=== PATIENT | male | born 1990 | race Caucasian/White ===

== ENCOUNTER 2017-07-17 18:52 | Emergency (ER) | payer BC, SELFPAY ==
[2017-07-17 19:58] VITALS: BP 191/112; PULSE 90; RESP 20; TEMP 36.8; O2SAT 100; BMI 45.4
--- NOTE | 2017-07-17 20:03 | HMH.EDUTC ---
[facility] [place] Disposition Clinical Impression: Muscle spasm Disposition: Home, Self-Care Condition on Discharge: Good Instructions: DI for Muscle Spasm, Back Pain (Alternative Therapy), DI for Thoracic Back Pain Additional Instructions: Follow up with family doctor If you do not have a family doctor I provided you with a list of doctor accepting patients Take medication as prescribed REturn if needed Prescriptions: Cyclobenzaprine HCl [Flexeril 10mg tablet] 10 mg PO TID PRN #20 tab PRN Reason: Muscle Spasm Etodolac [Etodolac 200mg Cap] 200 mg PO Q6H PRN #20 cap PRN Reason: Moderate Pain Forms: Work/School Release Time of Disposition: 20:42 Medical Decision Making - Medical Records Medical records reviewed: Yes: I reviewed the patient's medical records. Vital Signs: 07/17/17 19:58 07/17/17 20:32 Temperature 98.3 F Temperature Source Temporal Artery Scan Pulse Rate [Right] 90 Respiratory Rate 20 Blood Pressure 153/60 Blood Pressure [Right Arm] 191/112 Blood Pressure Mean [Right Arm] 138 Blood Pressure Source [Right Arm] Automatic Cuff Blood Pressure Position [Right Arm] Standing 02 Sat by Pulse Oximetry 100 Oxygen Delivery Method Room Air Orders (Tests/Meds): ED MEDICATIONS Discontinued Medications Generic Name Dose Route Start Last Admin Trade Name Freq PRN Reason Stop Dose Admin Ketorolac Tromethamine 60 mg 07/17/17 20:05 07/17/17 20:20 Toradol 60mg/2ml Vial IM 07/17/17 20:06 60 mg ONCE ONE Administration Orphenadrine Citrate 60 mg 07/17/17 20:06 07/17/17 20:20 Norflex 60mg/2ml Vial IM 07/17/17 20:07 60 mg ONCE ONE Administration - Brice Inquiry Pt receiving controlled substance: No Brice was queried for this patient: No - Reevaluation(s) Time: 20:39 Reevaluation #1: Patient state that pain is now a 2 State that pain is almost gone and he is able to stand without pain [facility] [place] HPI - General Stated complaint: back locked up - History of Present Illness Provider Complaint: Patient states that he has a history of back problems State that about once a month his back will lock up on him and he can take some Motrin or something and it will feel better State that earlier today he bent over to pick something up off the floor and he felt it pull then began having pain and spasms in his middle back area State that he laid in the recliner with a heating pad on it but it has not helped so he came in to get something to help with the pain, Denies recent injury, state that this has been occuring on and off now for about 5 years - Related Data Previous Rx's Medication Instructions Recorded Cyclobenzaprine HCl [Flexeril 10mg 10 mg PO TID PRN #20 tab 07/17/17 tablet] Etodolac [Etodolac 200mg Cap] 200 mg PO Q6H PRN #20 cap 07/17/17 Allergies Allergy/AdvReac Type Severity Reaction Status Date / Time No Known Allergies Allergy Verified 07/17/17 20:04 [facility] History I have reviewed the patient's past medical history: Yes ROS Obtained: Yes All systems reviewed & no additional complaints - Musculoskeletal Musculoskeletal: Reports back pain, Reports muscle aches, Reports stiffness Physical Exam - General General appearance: alert, in no apparent distress - Respiratory Respiratory exam: Present: normal lung sounds bilaterally. Absent: respiratory distress - Cardiovascular Cardiovascular exam: Present: regular rate, normal rhythm. Absent: JVD - Abdominal Exam Abdominal exam: Present: soft, normal bowel sounds. Absent: distention, tenderness, guarding - Back Exam Back exam: Present: muscle spasm, other Comment: History of back pain and muscle spasm/pain State that he bent over earlier today and felt something pull and been having pain and spasms ever since. Spasm (muscle) felt middle back on left side just under shoulder blade - Neurological Exam Neurological exam: Present: alert, oriented X3
--- NOTE | 2017-07-17 20:06 | ED_ITS ---
[facility] [place]ression: Muscle spasm Disposition: Home, Self-Care Condition on Discharge: Good Instructions: DI for Muscle Spasm, Back Pain (Alternative Therapy), DI for Thoracic Back Pain Additional Instructions: Follow up with family doctor If you do not have a family doctor I provided you with a list of doctor accepting patients Take medication as prescribed REturn if needed Prescriptions: Cyclobenzaprine HCl [Flexeril 10mg tablet] 10 mg PO TID PRN #20 tab PRN Reason: Muscle Spasm Etodolac [Etodolac 200mg Cap] 200 mg PO Q6H PRN #20 cap PRN Reason: Moderate Pain Forms: Work/School Release Time of Disposition: 20:42 Medical Decision Making - Medical Records Medical records reviewed: Yes: I reviewed the patient's medical records. Vital Signs: 07/17/17 19:58 07/17/17 20:32 Temperature 98.3 F Temperature Source Temporal Artery Scan Pulse Rate [Right] 90 Respiratory Rate 20 Blood Pressure 153/60 Blood Pressure [Right Arm] 191/112 Blood Pressure Mean [Right Arm] 138 Blood Pressure Source [Right Arm] Automatic Cuff Blood Pressure Position [Right Arm] Standing 02 Sat by Pulse Oximetry 100 Oxygen Delivery Method Room Air Orders (Tests/Meds): ED MEDICATIONS Discontinued Medications Generic Name Dose Route Start Last Admin Trade Name Freq PRN Reason Stop Dose Admin Ketorolac Tromethamine 60 mg 07/17/17 20:05 07/17/17 20:20 Toradol 60mg/2ml Vial IM 07/17/17 20:06 60 mg ONCE ONE Administration Orphenadrine Citrate 60 mg 07/17/17 20:06 07/17/17 20:20 Norflex 60mg/2ml Vial IM 07/17/17 20:07 60 mg ONCE ONE Administration - Brice Inquiry Pt receiving controlled substance: No Brice was queried for this patient: No - Reevaluation(s) Time: 20:39 Reevaluation #1: Patient state that pain is now a 2 State that pain is almost gone and he is able to stand without pain [facility] [place] - General Stated complaint: back locked up - History of Present Illness Provider Complaint: Patient states that he has a history of back problems State that about once a month his back will lock up on him and he can take some Motrin or something and it will feel better State that earlier today he bent over to pick something up off the floor and he felt it pull then began having pain and spasms in his middle back area State that he laid in the recliner with a heating pad on it but it has not helped so he came in to get something to help with the pain, Denies recent injury, state that this has been occuring on and off now for about 5 years - Related Data Previous Rx's Medication Instructions Recorded Cyclobenzaprine HCl [Flexeril 10mg 10 mg PO TID PRN #20 tab 07/17/17 tablet] Etodolac [Etodolac 200mg Cap] 200 mg PO Q6H PRN #20 cap 07/17/17 Allergies Allergy/AdvReac Type Severity Reaction Status Date / Time No Known Allergies Allergy Verified 07/17/17 20:04 [facility] History I have reviewed the patient's past medical history: Yes ROS Obtained: Yes All systems reviewed & no additional complaints - Musculoskeletal Musculoskeletal: Reports back pain, Reports muscle aches, Reports stiffness Physical Exam - General General appearance: alert, in no apparent distress
[2017-07-17 20:32] VITALS: BP 153/60
== END 2017-07-17 20:45 | disposition home or self-care (01) ==
PROVIDERS: Emergency Provider Emergency Medicine; Family Provider Family Medicine
DX: M62.830 Muscle spasm of back (principal)
CPT/HCPCS: 96372; 99201

== ENCOUNTER 2021-05-29 14:21 | Emergency (ER) | payer SELFPAY ==
[2021-05-29 15:15] VITALS: BP 138/80; PULSE 89; RESP 18; TEMP 37.4; O2SAT 99; BMI 48.4
[2021-05-29 15:47] LABS: UTC Influenza A Antigen Negative (Negative); UTC Influenza B Antigen Negative (Negative)
--- NOTE | 2021-05-29 15:57 | HMH.EDUTC ---
[facility] [place] Impression: URI (upper respiratory infection) Qualifiers: URI type: unspecified URI Qualified Code(s): J06.9 - Acute upper respiratory infection, unspecified Disposition: Home, Self-Care Condition on Discharge: Good Instructions: Sore Throat, DI for Sinusitis, Cough Additional Instructions: *Monitor Temp, Over the counter Motrin or Tylenol as directed/as needed Tylenol every 4 hours and Motrin every 6 hours (as long as your family doctor has told you that you can take it) for fever or pain. and straight to ER if unable to lower temp less than 101.0 after medication given *Warm salt water gargles may help to soothe the throat *Throat Lozenges *Warm fluids like tea with honey may help to soothe the throat *Sleep elevated *Humidifier/Vaporizer Follow up IMMEDIATELY for new or worsening symptoms or no Noticeable improvement over the next 48-72 hours. 911 for difficulty breathing or swallowing You were tested for today for COVID19 your test result should be back in the next 24-48 hours, you may check the [facility] [employer] Portal for your results if you are unable to see them you can call or if your results are positive someone will call you with the results You was given a handout with instructions for Self Quarantine and Self isolation for while you wait on test results and what to do if they are positive If you are positive the Health Dept will be contacting you also Make sure to take your Vitamins Vit. C Vit D and Zinc if you can take them Prescriptions: Benzonatate [Benzonatate 100mg cap] 100 mg PO TID PRN #30 cap PRN Reason: Cough Transmission Status: Pending to [facility] methylPREDNISolone [Medrol 4mg tab] 4 mg PO DIRECTED #21 tab Transmission Status: Pending to [facility] Azithromycin [Z-Ray 250mg Tab] 250 mg PO DIRECTED #6 tab Transmission Status: Pending to [facility] Referrals: Provider,Referral, MD [Primary Care Provider] - As needed Forms: Work/School Release Medical Decision Making - Brice Inquiry Pt receiving controlled substance: No Brice was queried for this patient: No Vital Signs: 05/29/21 15:15 Temperature 99.3 F Temperature Source Oral Pulse Rate [Right Brachial] 89 Respiratory Rate 18 Blood Pressure [Right Arm] 138/80 Blood Pressure Mean [Right Arm] 99 Blood Pressure Source [Right Arm] Automatic Cuff Blood Pressure Position [Right Arm] Sitting 02 Sat by Pulse Oximetry 99 Oxygen Delivery Method Room Air - Lab Data Lab results reviewed: Yes: I reviewed the patient's lab results. Lab Results 05/29/21 15:46: Influenza Type A Ag Negative, Influenza Type B Ag Negative [facility] [place] - General Stated complaint: covid symptoms Time Seen by Provider: 05/29/21 15:58 Mode of Arrival: Ambulatory Source of Information: Patient Limitations: No Limitations Description of Symptoms (Recalled from Triage Doc. by RN): PATIENT C/O COUGH, CONGESTION, AND FATIGUE X 8 DAYS HEENT Symptoms (Recalled from RN notes): No Resp Symptoms (Recalled from RN notes): Yes Skin Symptoms (Recalled from RN notes): No MS Symptoms (Recalled from RN notes): No Functional Status (Recalled from RN notes): WNL - History of Present Illness Provider Complaint: Patient states that he has not felt well for over a week States that he has been having cough, fatigue, sinus congestion and over all not feeling well States that he has had some pressure like feeling in his ears and feeling drained so he came in to get checked out - Related Data Previous Rx's Medication Instructions Recorded Cyclobenzaprine HCl [Flexeril 10mg 10 mg PO TID PRN #20 tab 07/17/17 tablet] Etodolac [Etodolac 200mg Cap] 200 mg PO Q6H PRN #20 cap 07/17/17 Azithromycin [Z-Ray 250mg Tab] 250 mg PO DIRECTED #6 tab 05/29/21 Benzonatate [Benzonatate 100mg 100 mg PO TID PRN #30 cap 05/29/21 cap] methylPREDNISolone [Medrol 4mg 4 mg PO DIRECTED #21 tab
[2021-05-29 16:13] VITALS: BP 138/80; PULSE 89; RESP 18; TEMP 37.4; O2SAT 99
== END 2021-05-29 16:21 | disposition home or self-care (01) ==
PROVIDERS: Emergency Provider Nurse Practitioner
DX: U07.1 COVID-19 (principal); J06.9 Acute upper respiratory infection, unspecified
CPT/HCPCS: 87804; 99202; C9803; G0463; U0003; U0005

== ENCOUNTER 2024-09-26 11:36 | Emergency (ER) | payer SELFPAY ==
[2024-09-26 11:43] VITALS: BP 158/85; PULSE 73; RESP 15; TEMP 37.2; O2SAT 99; BMI 48.4
--- NOTE | 2024-09-26 12:06 | ED_ITS ---
<Statement entered by Judy Saldaña DO - 09/26/24 16:17> I was consulted by the JOSÉ ANTONIO, and we discussed the complexity of the problems being addressed. I approved the treatment and management plan for this patient's care in the emergency department, thus performing a substantive portion of the medical decision making. Judy Saldaña DO Discharge Plan Disposition Patient Disposition: Home, Self-Care Condition: Good Prescriptions Prescriptions: New amoxicillin-pot clavulanate [Augmentin] 500-125 mg tablet 1 tab PO BID PRN (Reason: dental abcess) 10 Days Qty: 20 0RF No Action azithromycin 250 MG tablet 250 mg PO DIRECTED Qty: 6 0RF Rx Instructions: Take two (2) tablets on day #1, then one (1) tablet day #2 thru #5 methylprednisolone 4 MG tablet 4 mg PO DIRECTED Qty: 21 0RF Rx Instructions: Take as directed on package instructions benzonatate 100 MG capsule 100 mg PO TID PRN (Reason: Cough) Qty: 30 0RF cyclobenzaprine 10 MG tablet 10 mg PO TID PRN (Reason: Muscle Spasm) Qty: 20 0RF etodolac 200 MG capsule 200 mg PO Q6H PRN (Reason: Moderate Pain) Qty: 20 0RF Referrals Follow up/Referrals: Provider,Referral, MD [Primary Care Provider] - See instructions Activity Restrictions/Add. Instructions Additional Instructions/Restrictions: Antibiotics as ordered Dental balls as ordered Tylenol Motrin as needed for pain Follow-up with dentist as soon as possible If symptoms worsen or do not improve return Clinical Impressions Clinical Impression: Dental abscess Instructions Patient Instructions: DI for Dental Pain, DI for Tooth Decay, Tooth Abscess Print Language Print Language: Korean Discharge ED Provider: Judy Saldaña General Adult HPI General Chief complaint: Dental/Oral Stated complaint: abcess tooth R side-Pain Time Seen by Provider: 09/26/24 12:03 Mode of Arrival: Ambulatory Source of Information: Patient Description of Symptoms (Recalled from ER Triage Doc. by RN): patient states he has had a toothache since has been controlling pain with ibuprofen and /orajel but today the pain isnt going away. took mg of ibuprofen at 4 am today aching pain bottom right molar History of Present Illness HPI narrative: 33-year-old male presents for toothache since . Patient states he was having it controlled well with Tylenol ibuprofen and Orajel but today is causing pain to shoot up his jaw and into his ear. Related Data Previous Rx's ?Medication ?Instructions ?Recorded cyclobenzaprine 10 mg tablet 10 mg PO TID PRN Muscle Spasm #20 07/17/17 tabs etodolac 200 mg capsule 200 mg PO Q6H PRN Moderate Pain 07/17/17 #20 caps azithromycin 250 mg tablet 250 mg PO DIRECTED #6 tabs 05/29/21 benzonatate 100 mg capsule 100 mg PO TID PRN Cough #30 caps 05/29/21 methylprednisolone 4 mg tablet 4 mg PO DIRECTED #21 tabs 05/29/21 amoxicillin 500 mg-potassium 1 tab PO BID PRN dental abcess 10 09/26/24 clavulanate 125 mg tablet days #20 tabs (Augmentin) Allergies Allergy/AdvReac Type Severity Reaction Status Date / Time No Known Allergies Allergy Verified 07/17/17 20:04 [facility] Disclaimer: The information contained in this section may have been updated after the patient was seen, as this information can be updated by other users. Social History , [employer]) Smoking Status: Current every day smoker alcohol intake: never current occupational status: employed Travel in the last 8 weeks: None ROS Obtained: Yes Systems reviewed as appropriate & no additional complaints except as documented ENT Ears, Nose, Mouth, and Throat: Reports system reviewed and no additional complaints, except as documented, Reports as per HPI and Reports other (Toothache) Physical Exam General General appearance: alert and in no apparent distress Eye Eye exam: Present normal appearance ENT ENT exam: Present mucous membranes moist and TM's normal bilaterally Expanded ENT Exam Teeth numbered Image: 2 1. Other (Decay) Neck Neck exam: Present normal inspection Respiratory Respiratory exam: Present normal lung sounds bilaterally Cardiovascular Cardiovascular exam: Present regular rate and normal rhythm Neurological Exam Neurological exam: Present alert and oriented X3 Skin Skin exam: Present warm Medical Decision Making Medical Records Medical records reviewed: Yes I reviewed the patient's medical records. Screening: Per USPSTF and CDC recommendations, given the prevalence of disease in our region, it is our hospital?s policy to screen for HIV and viral Hepatitis for all patients aged 18 and over and those with ongoing risk factors. Brice Inquiry Pt receiving controlled substance: No Brice was queried for this patient: No Vital Signs: 09/26/24 11:43 Temperature 99 F Temperature Source Oral Pulse Rate [Right] 73 Respiratory Rate 15 Blood Pressure [Right Arm] 158/85 H Blood Pressure Mean [Right Arm] 109 Blood Pressure Source [Right Arm] Automatic Cuff Blood Pressure Position [Right Arm] Sitting 02 Sat by Pulse Oximetry 99 Oxygen Delivery Method Room Air Orders (Tests/Meds): ORDERS Category Date Time Status HIV Combo Stat Lab 09/26/24 11:47 Ordered Hepatitis C Ab Qual. W/ RFX Stat Lab 09/26/24 11:47 Ordered Medical Decision Narrative: patient is a 33-year-old male who presents to the emergency department for evaluation of toothache. Patient is hemodynamically stable upon arrival, afebrile. Lower back molar decayed partial tooth missing. Differential diagnosis includes abscess, fracture. Initial workup will be conducted with dental balls for pain Rocephin. Initial inventions include dental balls placed. Upon repeat evaluation patient was sitting in the chair. Given this patient was appropriate for discharge will discharge home with prescription of Augmentin and close follow-up with his dentist of choice call as soon as possible for an appointment. Critical Care Critical Care Time Critical Care Time: No
[2024-09-26] MEDS: LIDOCAINE 2% VISCOUS SOL 15ML UDC 15 ML PO (12:19)
[2024-09-26] MEDS: LIDOCAINE 1% 5ML PF VIAL IM (12:20)
[2024-09-26] MEDS: cefTRIAXone 1GM VIAL 1 GM IM (12:20)
[2024-09-26 12:40] VITALS: BP 145/86; PULSE 85; RESP 14; TEMP 37.2; O2SAT 99
== END 2024-09-26 12:41 | disposition home or self-care (01) ==
PROVIDERS: Emergency Provider Emergency Medicine
DX: K04.7 Periapical abscess without sinus (principal); K08.89 Other specified disorders of teeth and supporting structures; Z72.0 Tobacco use
CPT/HCPCS: 96372; 99283; J0696